=== PATIENT | female | born 1965 | race Caucasian/White ===

== ENCOUNTER 2018-04-13 07:37 | Day surgery (SDC) | payer OTHER ==
[~2018-04-13 07:37] MED LIST: Bupivacaine 0.5%/EPINEPHrine 1:200,000 50 ML MDV ONE; cefOXitin 2 GM Vial ONE
[2018-04-13] MEDS ORDERED: Ondansetron 4 MG/2 ML SDV ONE (07:58)
[2018-04-13] MEDS ORDERED: Rocuronium 50 MG/5 ML Vial ONE (07:58)
[2018-04-13] MEDS ORDERED: Propofol 200 MG/20 ML SDV ONE (07:58)
[2018-04-13] MEDS ORDERED: Neostigmine Methylsulfate 1 MG/ML 5 ML Syringe ONE (07:58)
[2018-04-13] MEDS ORDERED: Dexamethasone 4 MG/ML SDV ONE (07:58)
[2018-04-13] MEDS ORDERED: Succinylcholine 200 MG/10 ML MDV ONE (07:58)
[2018-04-13] MEDS ORDERED: Glycopyrrolate 0.2 MG/ML 5 ML MDV ONE (07:58)
[2018-04-13] MEDS ORDERED: fentaNYL 250 MCG/5 ML SDV ONE (08:00)
[2018-04-13] MEDS ORDERED: Acetaminophen 500 MG Tab PO ONE (08:45)
[2018-04-13] MEDS ORDERED: Gabapentin 300 MG Cap PO ONE (08:45)
[2018-04-13] MEDS ORDERED: Dextrose 5%-Lactated Ringers 1,000 ML IV SCH ×2 (08:45)
[2018-04-13] MEDS ORDERED: Scopolamine 1.5 MG Transdermal Patch TOP SCH (08:45)
[2018-04-13] MEDS ORDERED: Lidocaine 0.4%/D5W 2 GM/500 ML BAG IV SCH (09:45)
[2018-04-13] MEDS ORDERED: Ketamine 50 MG in Sodium Chloride 0.9% 49.5 ML IV SCH (09:45)
[2018-04-13] MEDS ORDERED: Lidocaine 2% 100 MG/5 ML Syringe IVPUSH SCH (09:45)
[2018-04-13] MEDS ORDERED: Ketamine 500 MG/5 ML MDV IV SCH (09:45)
[2018-04-13] MEDS ORDERED: Ropivacaine 52 ML, Dexamethasone 8 MG, EPINEPHrine 0.4 MG, Sodium Chloride 0.9% 25.6 ML NERVRT SCH ×4 (09:45)
[2018-04-13] MEDS: cefOXitin 2 GM in Sodium Chloride 0.9% 50 ML IV ONE ×2 (10:30→15:19)
[2018-04-13] MEDS ORDERED: Sugammadex Sodium 200 MG/2 ML VIAL ONE (12:25)
[2018-04-13] MEDS ORDERED: Acetaminophen 325 MG Tab PO PRN (12:56)
[2018-04-13] MEDS ORDERED: hydrOXYzine HCl 100 MG/2 ML SDV IM PRN (12:56)
[2018-04-13] MEDS ORDERED: Ondansetron 4 MG/2 ML SDV IVPUSH PRN (12:57)
[2018-04-13] MEDS ORDERED: Labetalol 20 MG/4 ML Syringe IV PRN (12:59)
[2018-04-13] MEDS: VERIFY SCOP PATCH TOP SCH ×2 (15:20→21:23)
[2018-04-13] MEDS: cefOXitin 2 GM in Sodium Chloride 0.9% 50 ML IV SCH ×2 (16:08→21:35)
[2018-04-13] MEDS: Heparin Sodium 5,000 Units/ML Vial SUBCUT SCH (16:11)
[2018-04-13] MEDS: Pantoprazole 40 MG Vial IV SCH (16:12)
[2018-04-13] MEDS: Metoprolol Succinate 50 MG Tab.ER PO SCH (16:13)
[2018-04-13] MEDS: Dextrose 5%-Lactated Ringers 1,000 ML IV SCH (21:35)
--- NOTE | 2018-04-14 00:16 | ANES ---
DATE OF SERVICE: 04/13/2018 ADDENDUM: I did give Ms. Bernstein 100 mg of sugammadex at the end of the procedure due to the fact that she was not reversed fully with neostigmine. Reece Lipscomb CRNA /[id number]
[2018-04-14] MEDS: Heparin Sodium 5,000 Units/ML Vial SUBCUT SCH ×2 (00:44→08:31)
[2018-04-14] MEDS ORDERED: Iohexol 647 MG/ML 50 ML SDV PO PRN (02:09)
[2018-04-14] MEDS: Dextrose 5%-Lactated Ringers 1,000 ML IV SCH (04:36)
[2018-04-14] MEDS: Pantoprazole 40 MG Vial IV SCH (04:37)
[2018-04-14] MEDS: VERIFY SCOP PATCH TOP SCH (09:00)
[2018-04-14] MEDS: Metoprolol Succinate 50 MG Tab.ER PO SCH (09:48)
--- NOTE | 2018-04-14 11:11 | DISCH ---
FINAL DIAGNOSIS: Intolerance to laparoscopic adjustable gastric band. SECONDARY DIAGNOSES: 1. Peritoneal nodules over left lobe of liver and anterior aspect of stomach. 2. Area of deserosalization of stomach status post takedown of laparoscopic adjustable gastric band. 3. History of hypertension. 4. History of rheumatoid arthritis. 5. Gastroesophageal reflux disease. 6. Treated hypothyroidism. 7. Bariatric surgery status (status post laparoscopic adjustable gastric band placement in 2004). OPERATIVE PROCEDURES: This was done on 04/13, diagnostic laparoscopy with lysis of adhesions and: 1. Removal of laparoscopic adjustable gastric band system. 2. Wedge biopsy of left lobe of liver. 3. Excision of peritoneal nodule on the anterior aspect of stomach. 4. Partial gastrectomy. SUMMARY: A 52-year-old presenting with worsening symptoms of severe reflux, status post lap band placement by Dr. Maria in [place], [place] in 2004. The patient has had to sleep sitting up, and despite of that wakes up with cough and reflux symptoms, and after discussion, she wished to have the band removed. 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 The band system was removed on the day of admission along with the above additional procedures. Postoperatively, no major problems were noted. An upper GI x-ray was obtained this morning which showed good emptying in the esophagus and stomach and she will be discharged home more or less on a regular diet starting out with a relatively bland diet initially. Otherwise, she is requiring only Tylenol for pain at this point, and will be sent home with Tylenol 650 to 1000 mg q.i.d. p.r.n. and also instructed she can take ibuprofen 400 to 600 mg q.i.d. p.r.n. as well if needed. Otherwise, she will be following up with Jackie Borrego at [facility] on 04/21/2018.
--- NOTE | 2018-04-15 09:12 | CR ---
UGI wo KUB HISTORY: Left band removal evaluation. COMPARISON: None FINDINGS: 2 KUB images after oral contrast was administered. Stomach demonstrates slight narrowing at its mid aspect this could've been where the prior left band was present. Tiny amount of air under the hemidiaphragm on the left. Contrast reaches the small bowel on the second 10 minute image without evidence for obstruction. There is no extravasation of contrast.
--- NOTE | 2018-04-27 09:42 | OR ---
DATE OF PROCEDURE: 04/13/2018 PREOPERATIVE DIAGNOSIS: Intolerance to laparoscopic adjustable gastric band. POSTOPERATIVE DIAGNOSES: 1. Intolerance to laparoscopic adjustable gastric band. 2. Peritoneal nodule over inferior edge of the left lobe of liver. 3. Peritoneal nodule in anterior aspect of stomach. 4. Edge of the stomach deserosalized secondary to takedown of laparoscopic adjustable gastric band. PROCEDURE: Diagnostic laparoscopy with lysis of adhesions and: 1. Removal of laparoscopic adjustable gastric band system (16374). 2. Wedge biopsy of left lobe of the liver (12323). 3. Excision of peritoneal nodule over anterior aspect of stomach (74827). 4. Resection of area of deserosalized stomach at takedown site of band (09719). ANESTHESIA: General. CITY DESIGNER: Jackie Borrego PA-C. INDICATIONS FOR PROCEDURE: This is a 52-year-old status post laparoscopic adjustable gastric band placement who has developed an increasing intolerance to the band with dysphagia as well as severe reflux symptoms despite the band being decompressed. The patient wishes to have the band system removed at this point. She is not interested in converting to a gastric bypass. Potential risks of the procedure including bleeding, infection, injury to the viscera in the area were all discussed with the patient, and she wishes to proceed. DESCRIPTION OF PROCEDURE: The patient was taken to the operating room and placed in a supine position. After general endotracheal anesthesia was induced, the patient was placed in a lithotomy position and the abdomen prepped and draped. At 15 cm inferior and 5 cm left of xiphoid process, a transverse incision was made and peritoneal cavity entered under direct vision with an Optiview trocar inflated to 15 mmHg pressure with CO2. Laparoscope was then reinserted. No underlying trocar insertion site injuries were seen. Following this, 4 additional trocars were placed across the upper and mid abdomen and general exploration was undertaken. The patient was noted to have a peritoneal nodular lesion over the inferior aspect of the mid left lobe of the liver. This was initially excised by means of a wedge resection using Harmonic scalpel and that specimen delivered from the field. On the anterior aspect of the midbody of the gastric wall, a small nodule was also present. This was elevated and then resected with a MARIE stapler maintaining a small margin of normal tissue around it. This would be potentially associated with a gastrointestinal stromal tumor at that location. At this point, the adhesions around the band were taken down with electrocautery along with Harmonic scalpel as once the band was freed up from adhesions such that it was mobile, it was divided and removed from the tunnel. The band was then disconnected and the port tubing was divided. The two portions of band were then removed from the peritoneal cavity. The edge of the stomach which was used to fix the band in place was noted to be somewhat deserosalized and probably had some degree of cautery effects. Given this, this was elevated and this area was excised with 2 firings of the MARIE black and purple loads. The specimen was then delivered from the field as well. At this point, no further problems were noted. The trocars were sequentially removed and the fascia at the 15 mm sites was closed with 0 Vicryl stitch and the skin with 4-0 Vicryl skin stitch. Dressing was applied. The patient was taken to the recovery room in satisfactory condition. Physician wet process assistant head miller, Jackie Borrego played an essential role in assisting in this case, helping to position the patient, retract structures as needed, as well as suturing and cutting sutures when indicated. Her presence improved patient safety and decreased the operative time. Mayank Garcia MD /[id number]
== END 2018-04-14 11:22 | disposition home or self-care (01) ==
LOC: JP.SDS 07:37 → JP.2SS 12:05 → JP.SDS 04-14 11:22
PROVIDERS: ATTEND Surgery
DX: K95.09 Other complications of gastric band procedure (principal); K76.89 Other specified diseases of liver; K66.0 Peritoneal adhesions (postprocedural) (postinfection); K29.50 Unspecified chronic gastritis without bleeding; I10 Essential (primary) hypertension; M06.9 Rheumatoid arthritis, unspecified; K21.9 Gastro-esophageal reflux disease without esophagitis; E66.09 Other obesity due to excess calories; Z68.41 Body mass index [BMI] 40.0-44.9, adult; Z79.82 Long term (current) use of aspirin; Z79.899 Other long term (current) drug therapy; Z79.890 Hormone replacement therapy; Z88.2 Allergy status to sulfonamides
CPT/HCPCS: 36415; 74240; 74240-26; 80053; 81025; 82962; 83735; 84100; 85027; 86850; 86900; 86901; 88300; 88305; 88307; 94762; A9270-GY; C9113; C9399; J0171; J0330; J0694; J1100; J1644; J2001; J2020; J2405; J2704; J2710; J2795; J3010; J3490; J7042; J7050; Q9967